=== PATIENT | male | born 2000 | race Two or more races ===

== ENCOUNTER 2023-06-01 10:07 | Emergency (ER) | payer SELFPAY ==
[~2023-06-01] VITALS: Ht 172.7 cm; Wt 101.8 kg
[~2023-06-01 10:07] MED LIST: AZIT-185 PO; BENZ100C97 PO; IBUP1TAB5 PO; PROM1SOL4 PO
[2023-06-01 12:20] VITALS: BP 134/82; PULSE 87; RESP 18; O2SAT 98
[2023-06-01] MEDS: IBUPROFEN 600 MG TAB PO ONE (13:19)
[2023-06-01 13:58] LABS: Rapid Strep A Screen-Throat Negative
[2023-06-01 14:16] VITALS: TEMP 98.7
[2023-06-01] MEDS ORDERED: LIDO2SOL26 MT (14:43)
== END 2023-06-01 14:53 | disposition home or self-care (01) ==
LOC: ER 10:07
DX: J02.9 Acute pharyngitis, unspecified (principal); J45.909 Unspecified asthma, uncomplicated; Z88.1 Allergy status to other antibiotic agents; Z79.899 Other long term (current) drug therapy
CPT/HCPCS: 87070; 87880